=== PATIENT | female | born 1995 | race Caucasian/White ===

== ENCOUNTER 2017-04-20 13:22 | Emergency (ER) | payer OTHER ==
[~2017-04-20] VITALS: Ht 160 cm; Wt 103.6 kg
[2017-04-20 13:28] VITALS: Ht 160 cm; Wt 103.6 kg
[2017-04-20] MEDS ORDERED: ACETAMINOPHEN 325 MG TAB PO STA (13:52)
[2017-04-20] MEDS ORDERED: ONDANSETRON 4 MG INJ IV STA (13:52)
[2017-04-20] MEDS ORDERED: SOD CHLORIDE 0.9% 1,000 ML IV STA (13:52)
[2017-04-20] MEDS ORDERED: LACTATED RINGER'S 1,000 ML IV ONE (14:21)
[2017-04-20 14:23] LABS: BASOPHILS % 0.2 % (0.0-2.0); EOSINOPHILS % 0.5 % (0.0-7.0); HEMOGLOBIN 14.8 g/dl (12.0-16.0); LYMPHOCYTES # 2.2 10^3/ul (0.8-2.9); LYMPHOCYTES % 26.1 % (15.0-51.0); MEAN CORPUSCULAR HEMOGLOBIN 26.6 pg (29.0-33.0); MEAN CORPUSCULAR HGB CONC 32.9 g/dl (32.0-37.0); MEAN CORPUSCULAR VOLUME 80.9 fl (82.0-101.0); MONOCYTE # 0.4 10^3/ul (0.3-0.9); MONOCYTES % 4.5 % (0.0-11.0); NEUTROPHIL # 5.8 10^3/ul (1.6-7.5); NEUTROPHILS % 68.3 % (39.0-77.0); PLATELET COUNT 426 10^3/UL (140-415); RED BLOOD COUNT 5.56 10^6/ul (4.20-5.40); RED CELL DISTRIBUTION WIDTH 13.3 % (11.5-14.5); WHITE BLOOD COUNT 8.5 10^3/ul (4.8-10.8)
--- NOTE | 2017-04-20 14:23 | RADRPT ---
PROCEDURE: CT Brain without contrast. CLINICAL INDICATION: Headache. TECHNIQUE: A CT of the brain was performed on multidetector high-resolution CT scanner utilizing a xial sections from the skull base through the vertex without contrast. The scan was reviewed in sof t tissue brain and high frequency resolution bone algorithm windows. Images were reviewed on a high -resolution PACS workstation. One or more the following does reduction techniques were utilized: Aut omated exposure control, adjustment of the mA/ or kV according to patient's size, or use of iterativ e reconstruction technique. The exam CTDI = 37.92 mGy and the DLP = 612.73 mGy-cm. DICOM images are available. COMPARISON: None available. FINDINGS: The ventricles and sulci are age-appropriate. There is no intracranial hemorrhage, mass effect or m idline shift. No abnormal intra-axial or extra-axial fluid collections are seen. The santamaria/white mat ter differentiation is preserved. No acute skull abnormality is noted. The visualized paranasal sinu ses demonstrate mild mucosal thickening mainly in ethmoid air cells with focal opacification of the right frontoethmoidal recess with mucoid secretion. The mastoid air cell are essentially clear. IMPRESSION: 1. No acute intracranial hemorrhage, transcortical infarction or mass effect. RPTAT: HH .Robert Motta MD, MD Date Time Electronically viewed and signed by .Robert Motta MD, MD on 04/20/2017 14:23 .N/
[2017-04-20 14:34] LABS: ADD UMIC YES; UR ASCORBIC ACID NEGATIVE (NEGATIVE); UR BACTERIA FEW /HPF (NONE SEEN); UR BILIRUBIN (Dip) NEGATIVE (NEGATIVE); UR BLOOD (Dip) 2+ mg/dL (NEGATIVE); UR CLARITY CLEAR (CLEAR); UR COLOR YELLOW (YELLOW); UR GLUCOSE (Dip) NEGATIVE (NEGATIVE); UR KETONES (Dip) NEGATIVE (NEGATIVE); UR LEUKOCYTE ESTERASE (Dip) 3+ Leu/ul (NEGATIVE); UR MUCUS FEW /HPF (NONE SEEN); UR NITRITE (Dip) NEGATIVE (NEGATIVE); UR RBC 2 /HPF (0-5); UR SPECIFIC GRAVITY (Dip) 1.016 (1.003-1.030); UR SQUAMOUS EPITHELIAL CELL FEW /HPF (FEW); UR TOTAL PROTEIN (Dip) NEGATIVE (NEGATIVE); UR UROBILINOGEN (Dip) NEGATIVE (NEGATIVE)
[2017-04-20 14:44] LABS: CALCIUM 9.6 mg/dl (8.4-10.2); CREATININE 0.7 mg/dl (0.44-1.00); POTASSIUM 3.7 mmol/L (3.5-5.1)
[2017-04-20] MEDS ORDERED: KETOROLAC 30 MG INJ IV STA (15:08)
[2017-04-20] MEDS ORDERED: CEPHALEXIN 500 MG CAP PO ONE (15:30)
[2017-04-20] MEDS ORDERED: CEPH-443 PO (15:39)
[2017-04-20] MEDS ORDERED: IBUP-1542 PO (15:39)
--- NOTE | 2017-04-20 15:44 | ERD ---
ER Documentation Chief Complaint Chief Complaint BIB [id number] FR WK NEAR SYNCOPE HELPED TO FLOOR, TABOR, LMP 04/14/17 HPI This 21-year-old female was at work today. She began having a headache. She has some nausea. She also felt her hearing become diminished her black. She had a near syncopal episode. She was helped to the floor. She arrived by rescue. Currently she complains of persistent headache. She has had some chills as well. She has urinary complaints, cough, vomiting, abdominal pain. ROS All systems reviewed and are negative except as per history of present illness. Medications Home Meds Active Scripts Ibuprofen* (Motrin*) 600 Mg Tab, 600 MG PO Q6, #15 TAB Prov:DARIAN FERRIS MD 04/20/17 Cephalexin* (Keflex*) 500 Mg Capsule, 500 MG PO QID for 5 Days, CAP Prov:DARIAN FERRIS MD 04/20/17 Allergies Allergies: Coded Allergies: acetaminophen (Unverified Allergy, Unknown, THROAT ITCHING, 04/20/17) hydrocodone (Unverified Allergy, Unknown, THROAT ITCHING, 04/20/17) morphine (Unverified Allergy, Unknown, ITCHING THROAT, 04/20/17) PMhx/Soc History of Surgery: No Anesthesia Reaction: No Hx Neurological Disorder: No Hx Respiratory Disorders: No Hx Cardiac Disorders: No Hx Psychiatric Problems: No Hx Miscellaneous Medical Probl: No Hx Alcohol Use: No Hx Substance Use: No Hx Tobacco Use: No Physical Exam Vitals Vital Signs Date Time Temp Pulse Resp B/P Pulse Ox O2 Delivery O2 Flow Rate FiO2 04/20/17 13:28 98.2 128 18 179/106 99 Physical Exam Const: [] Alert, obese, no apparent distress. Head: Atraumatic Eyes: Normal Conjunctiva. Eyes PERRLA and extraocular movements intact. ENT: Normal External Ears, Nose and Mouth. Neck: Full range of motion..~ No meningismus. Resp: Clear to auscultation bilaterally Cardio: Regular rate and rhythm, no murmurs Abd: Soft, non tender, non distended. Normal bowel sounds Skin: No petechiae or rashes Back: No midline or flank tenderness Ext: No cyanosis, or edema Neur: Awake and alert. Cranial nerves II through XII grossly intact. Normal gait. No cerebellar signs. Psych: Normal Mood and Affect Result Diagram: 04/20/17 1400 04/20/17 1400 Results 24 hrs Laboratory Tests Test 04/20/17 13:29 04/20/17 14:00 Bedside Glucose 97mg/dL White Blood Count 8.510^3/ul Red Blood Count 5.5610^6/ul Hemoglobin 14.8g/dl Hematocrit 45.0% Mean Corpuscular Volume 80.9fl Mean Corpuscular Hemoglobin 26.6pg Mean Corpuscular Hemoglobin Concent 32.9g/dl Red Cell Distribution Width 13.3% Platelet Count 81674^3/UL Mean Platelet Volume 10.0fl Neutrophils % 68.3% Lymphocytes % 26.1% Monocytes % 4.5% Eosinophils % 0.5% Basophils % 0.2% Nucleated Red Blood Cells % 0.0/100WBC Neutrophils # 5.810^3/ul Lymphocytes # 2.210^3/ul Monocytes # 0.410^3/ul Eosinophils # 0.010^3/ul Basophils # 0.010^3/ul Nucleated Red Blood Cells # 0.010^3/ul Urine Color YELLOW Urine Clarity CLEAR Urine pH 6.0 Urine Specific [place] 1.016 Urine Ketones NEGATIVEmg/dL Urine Nitrite NEGATIVEmg/dL Urine Bilirubin NEGATIVEmg/dL Urine Urobilinogen NEGATIVEmg/dL Urine Leukocyte Esterase 3+Lizzy/ul Urine Microscopic RBC 2/HPF Urine Microscopic WBC 11/HPF Urine Squamous Epithelial Cells FEW/HPF Urine Bacteria FEW/HPF Urine Mucus FEW/HPF Urine Hemoglobin 2+mg/dL Urine Glucose NEGATIVEmg/dL Urine Total Protein NEGATIVEmg/dl Sodium Level 144mmol/L Potassium Level 3.7mmol/L Chloride Level 104mmol/L Carbon Dioxide Level 28mmol/L Anion Gap 16 Blood Urea Nitrogen 8mg/dl Creatinine 0.70mg/dl Glucose Level 94mg/dl Calcium Level 9.6mg/dl Serum HCG, Qualitative NEGATIVE Current Medications Medications (Trade) Dose Ordered Sig/Moi Route PRN Reason Start Time Stop Time Status Last Admin Dose Admin Sodium Chloride (NS) 1,000 ml @ 1,000 mls/hr Q1H STAT IV 04/20/17 13:52 04/20/17 14:51 DC 04/20/17 14:01 Acetaminophen (Tylenol Tab) 650 mg ONCE STAT PO 04/20/17 13:52 04/20/17 13:54 DC 04/20/17 14:01 Ondansetron HCl 4 mg 4 mg ONCE STAT IV 04/20/17 13:52 04/20/17 13:54 DC 04/20/17 14:01 Lactated Ringer's (Lr) 1,000 ml @ 0 mls/hr Q0M ONCE IV 04/20/17 14:21 04/20/17 14:22 DC Cephalexin (Keflex) 500 mg ONCE ONCE PO 04/20/17 15:30 04/20/17 15:31 DC 04/20/17 15:11 Ketorolac Tromethamine (Toradol) 30 mg ONCE STAT IV 04/20/17 15:08 04/20/17 15:09 DC 04/20/17 15:14 Procedures/MDM And headache of uncertain etiology and patient's describing is worse of life. CT brain was performed which was read as normal. Patient presented with some tachycardia. IV 1 L lactated Ringer's was given. CBC shows no acute abnormalities and CMP normal as well. Urine shows signs of infection with white blood cells and leukocytes. HCG is negative. EKG: Rate/Rhythm: [Normal Sinus Rhythm] rate equals 107 QRS, ST, T-waves: [No changes consistent w/ acute ischemia] Impression: [No evidence of ischemia or arrhythmia] impression-sinus tachycardia, otherwise no acute findings on EKG. Was given Zofran form of grams IV. Patient was given Toradol 30 mg IV after review of CT scan. Patient felt better after observation treatment. Patient presents with headache, nausea chills and near syncope, possibly vasovagal given no appreciable acute abnormalities. Patient will be discharged home with a course of Keflex, ibuprofen, instructions for fluids rest and return precautions and primary care follow-up. The patient was stable with no new complaints during the ER course. Clinically, there is no current evidence to suggest meningitis, sepsis, acute abdomen, pneumonia, acute coronary syndrome, pulmonary embolism, or any other emergent condition appearing to require further evaluation or hospitalization. The patient should certainly return for any new or worsening symptoms per the aftercare instructions. They should otherwise follow-up with her primary care doctor for reevaluation this week. Departure Diagnosis: Primary Impression: UTI (urinary tract infection) Urinary tract infection type: site unspecified Hematuria presence: without hematuria Qualified Code: N39.0 - Urinary tract infection without hematuria, site unspecified Additional Impression: Headache Headache type: unspecified Headache chronicity pattern: unspecified pattern Intractability: not intractable Qualified Code: R51 - Nonintractable headache, unspecified chronicity pattern, unspecified headache type Condition: Stable Patient Instructions: Understanding Urinary Tract Infections (UTIs), Headache, Unspecified, Near Syncope, Unknown Additional Instructions: And shows mild infection. May be viral illness. Recheck for new or worsening symptoms or primary care doctor. DARIAN FERRIS MD Apr 20, 2017 15:44
[2017-04-20 15:54] VITALS: BP 136/78; PULSE 78; RESP 18; TEMP 98.1
== END 2017-04-20 15:55 | disposition home or self-care (01) ==
LOC: E/R 13:22 → FTE 15:55
DX: N39.0 Urinary tract infection, site not specified (principal); R10.2 Pelvic and perineal pain
CPT/HCPCS: 36415; 70450; 80048; 81001; 82962; 84703; 85025; 93005; 96374; 96375; J1885; J2405; J7030; J7120; Z7502; Z7610